=== PATIENT | male | born 1980 | race Caucasian/White ===

== ENCOUNTER 2018-03-04 08:29 | Emergency (ER) | payer OTHER ==
[~2018-03-04] VITALS: Ht 195.6 cm; Wt 81.7 kg
[~2018-03-04 08:29] MED LIST: NOHOMEMEDICATIONS; ULTRAM 50MG TAB50 MG PO
[2018-03-04] MEDS ORDERED: FLEXERIL PO (09:26)
[2018-03-04] MEDS ORDERED: ULTRAM 50MG TAB50 MG PO (09:26)
[2018-03-04 09:37] VITALS: BP 107/68
== END 2018-03-04 10:02 | disposition home or self-care (01) ==
LOC: M.ERS 08:29
DX: M54.6 Pain in thoracic spine (principal)